=== PATIENT | female | born 1980 | race African-American/Black ===

== ENCOUNTER 2016-07-30 04:11 | Emergency (ER) | payer BC ==
[2016-07-30] MEDS ORDERED: Ondansetron HCl/PF 4 MG/2 ML Vial ONE (04:31)
[2016-07-30] MEDS ORDERED: Sodium Chloride 0.9% 1,000 ML ONE (04:31)
[2016-07-30 04:45] LABS: #Basophils 0.1 thou/uL (0.0-0.2); #Eosinphils 0.1 thou/uL (0.0-0.7); #Lymphocytes 2.4 thou/uL (1.20-3.40); #Monocytes 0.5 thou/uL (0.11-0.59); #Neutrophils 2.6 thou/uL (1.40-6.50); %Basophils 1.4 % (0.0-1.0); %Eosinophils 1.3 % (0.0-10.0); %Lymphocytes 41.8 % (21.0-51.0); %Monocytes 8.8 % (0.0-10.0); Hematocrit 30.8 % (36.0-47.0); Mean Platelet Volume 7.1 fL (7.4-10.4); Red Blood Cell (RBC) Count 4.16 mill/uL (4.20-5.40); White Blood Cell (WBC) Count 5.6 thou/uL (4.8-10.8)
[2016-07-30 04:46] LABS: Microcytosis MODERATE=15-30 cells (100X) (0-5/hpf); Spherocytes SLIGHT = 1-5 cells (100X) (None Seen); Tear Drops MODERATE= 6-15 cells (100X) (0-1/hpf)
[2016-07-30 04:57] LABS: ALT (SGPT) 10 U/L (0-55); AST (SGOT) 16 U/L (5-34); Alkaline Phosphatase 89 U/L (40-150); Anion Gap 13 mmol/L (10-20); BUN (Urea Nitrogen) 17 mg/dL (7.0-18.7); Bilirubin, Total 0.2 mg/dL (0.2-1.2); Calc. Creatinine Clearance 0 mL/min (70-130); Calcium 8.7 mg/dL (7.8-10.44); Carbon Dioxide 23 mmol/L (22-29); Chloride 109 mmol/L (98-107); Estimated GFR-MDRD 78; Protein, Total 7.8 g/dL (6.0-8.3)
--- NOTE | 2016-07-30 06:57 | ERRECORD ---
[facility] EMERGENCY RECORD HPI ABDOMINAL PAIN (04:32 JROB) CHIEF COMPLAINTS: Patient presents for evaluation of abdominal pain. HISTORIAN: History provided by patient, 36 year old female with history of bowel obstruction, bowel resection, appendectomy in 2000, presents with acute onset of right lower quadrant at 1am. Took 2 Motrin without relief. Had episode of similar pain 1 month ago that awoke her from sleep, but the pain resolved after taking Motrin. She was also seen at [place] [facility] last week with left sided pain, but was told that symptoms may be related to ovarian cyst. She states that labs were drawn and sent then, but does not know results, no imaging studies done at that time. She states her pain feels similar to when she had her "big surgery". No nausea, vomiting, diarrhea. No urinary symptoms. No fever, chills. LOCATION FEMALE: Symptoms are localized, most severe in the right lower quadrant. QUALITY: Pain is sharp in nature. SEVERITY: Current severity of pain rated as 8/10. TIME COURSE: Sudden onset of symptoms. ASSOCIATED WITH FEMALE: No associated symptoms, No associated chills, No associated constipation, No associated diarrhea, No associated fever, No associated hematemesis, No associated hematuria, No associated nausea, No associated trauma, No associated recent travel, No associated urinary tract infection signs or symptoms, No associated vomiting. MODIFYING FACTORS FEMALE: Patient using control, tubal ligation. RELIEVED BY: Patient's condition relieved by palpation. EXACERBATED BY: Patient's condition exacerbated by hanging right leg off stretcher. ROS (04:37 JROB) CONSTITUTIONAL: Historian denies chills, denies fever. ENT: Historian denies sore throat. CARDIOVASCULAR: Historian denies syncope. RESPIRATORY: Historian denies cough, denies shortness of breath. GI: Historian reports abdominal pain, denies nausea, denies vomiting. GENITOURINARY FEMALE: Historian denies dysuria, denies hematuria. MUSCULOSKELETAL: Historian denies back pain, denies neck pain. SKIN: Historian denies rash. NEUROLOGIC: Historian denies headache, denies mental status changes. HEMO/LYMPHATIC: Historian denies abnormal blood clotting. ALLERGIC/IMMUNOLOGIC: Historian denies frequent infections. PSYCHIATRIC: Historian denies drug abuse. NOTES: All systems reviewed, negative except as described above. PAST MEDICAL HISTORY MEDICAL HISTORY: Notes: "SEVERLY ANEMIC". (04:21 LK) FEMALE SURGICAL HISTORY: COLON RESECTION (2000). BILATERAL PRK EYE SX (2009)., Surgical history of appendectomy, Date of surgery 2000, Surgical history of orthopedic &a-1R&a+25V*p+0X*t2980Z*c202B*c15G*c2P*p-0X&a-25V&a+1R Name: Arpita Hernandez : 1980 F36 MedRec: [id number] AcctNum: [id number] Prepared: SatJul 30, 2016 06:19 by Interface Page 1 of 4 pMD [facility] EMERGENCY RECORD surgery, RIGHT THUMB, Date of surgery 2008, Surgical history of tubal ligation, Date of surgery 2004. (04:21 LK) PSYCHIATRIC HISTORY: No previous psychiatric history. (04:21 LK) SOCIAL HISTORY: Patient drinks socially, once a month, Patient denies drug use, Patient has no smoking history, Lives at home, with family. (04:21 LK) NOTES: Nursing records reviewed, Agree with nursing records, Medication list reviewed. (04:40 JROB) KNOWN ALLERGIES No Known Drug Allergies CURRENT MEDICATIONS (04:18 LK) None VITAL SIGNS VITAL SIGNS: Pain: 8 (Constant), Time: 07/30/2016 04:15. (04:15 [facility]) BP: 113/75, Pulse: 77, Resp: 16, Temp: 99.0 (Oral), O2 sat: 100 on Room Air, Time: 07/30/2016 04:18. (04:18 [facility]) BP: 111/65, Pulse: 63, Resp: 16, Pain: 0, O2 sat: 99 on Room Air, Time: 07/30/2016 05:31. (05:31 [facility]) BP: 106/59, Pulse: 60, Resp: 16, O2 sat: 100 on Room Air, Time: 07/30/2016 05:15. (05:15 [facility]) PHYSICAL EXAM (04:38 JROB) CONSTITUTIONAL: Vital Signs Reviewed, Patient afebrile, Pulse normal, Blood pressure normal, Respiratory rate normal, Patient alert and oriented to person, place and time, Nursing notes reviewed. HEAD: Head exam normal, Head exam included findings of head atraumatic, normocephalic. EYES: Eye exam normal, Pupils equally round and reactive to light, Extraocular muscles intact. ENT: Nose exam normal, Pharynx exam normal, Mouth exam normal. NECK: Neck exam normal, no cervical adenopathy. RESPIRATORY CHEST: Breath sounds clear, No wheezing, No rales, No rhonchi. CARDIOVASCULAR: Cardiovascular assessment normal, Cardiovascular exam included findings of heart rate regular rate and rhythm, Heart sounds normal. ABDOMEN FEMALE: Abdominal exam included findings of abdomen tender, to the right lower quadrant, to the suprapubic region, mild intensity, Bowel sounds normal, no mass, no peritoneal signs, no rebound, voluntary guarding in RLQ and suprapubic areas. BACK: Back exam normal, Back exam included findings of normal inspection, no costovertebral angle tenderness. UPPER EXTREMITY: Upper extremity exam normal, Upper extremity &a-1R&a+25V*p+0X*p4600D*c202B*c15G*c2P*p-0X&a-25V&a+1R Name: Arpita Hernandez : 1980 F36 MedRec: [id number] AcctNum: [id number] Prepared: SatJul 30, 2016 06:19 by Interface Page 2 of 4 pMD [facility] EMERGENCY RECORD exam included findings of inspection normal, Motor strength normal, Sensation intact. LOWER EXTREMITY: Lower extremity exam normal, Lower extremity exam included findings of inspection normal, Motor strength normal, Sensation intact. NEURO: Neuro exam findings include patient oriented to person, place and time, no focal motor deficits, no focal sensory deficits. SKIN: Skin exam included findings of skin warm, dry, no rash. RADIOLOGYINTERPRETATION (05:56 JROB) ABDOMEN: Abdomen/pelvis CT scan, without contrast shows, no obstruction, no ovarian cysts, no renal stones, Other findings: mild gas and fluid in nondilated small bowel, moderate stool. MARKETING SUPPORT MANAGER: Preliminary review of CT scans by, Radiologist. MEDICATION ADMINISTRATION SUMMARY Drug Name: ondansetron HCl intravenous, Dose Ordered: 4 mg, Route: IV Push, Status: Given, Time: 04:39 07/30/2016, Drug Name: *sodium chloride 0.9 % intravenous, Dose Ordered: 1 L, Route: IV Fluid Infusion, Status: Given, Time: 04:39 07/30/2016, Drug Name: morphine injection, Dose Ordered: 4 mg, Route: IV Push, Status: Given, Time: 04:39 07/30/2016, *Additional information available in notes, Detailed record available in Medication Service section. DOCTOR NOTES TEXT: Ordered Morphine, Zofran, IVF, labs, urine, CT abd/pelvis, will continue to monitor. (04:41 JROB) Discussed results with patient, no obstruction. CT shows mild ileus, moderate stool, otherwise negative. Labs notable for iron deficiency anemia. Will d/c home with Iron and Colace with plan to follow up at [place] [facility]. Patient is comfortable with this plan. (05:57 JROB) PATIENT STATUS: Patient has improved since arrival to emergency department. (05:57 JROB) PATIENT PLAN: The patient will be discharged, The patient will follow up with primary care physician. (05:57 JROB) DATA REVIEWED: Lab data reviewed, Xray data reviewed. (05:57 JROB) PROBLEM LIST No recorded problems DIAGNOSIS DIFFERENTIAL: Based on history, exam and ancillary studies if indicated: Impression: abdominal pain of unclear etiology, Impression: bowel obstruction, Impression: constipation, Impression: urinary tract disease, &a-1R&a+25V*p+0X*c8275G*c202B*c15G*c2P*p-0X&a-25V&a+1R Name: Arpita Hernandez : 1980 F36 MedRec: [id number] AcctNum: [id number] Prepared: SatJul 30, 2016 06:19 by Interface Page 3 of 4 pMD [facility] EMERGENCY RECORD Impression: nephrolithiasis, Impression: , Impression: ectopic , Impression: ovarian cyst, Impression: ruptured ovarian cyst, Diagnoses considered are not limited to those documented above. (04:40 JROB) FINAL: PRIMARY: Lower abdominal pain, ADDITIONAL: IRON DEFICIENCY ANEMIA UNSPECIFIED. (06:01 JROB) PRESCRIPTION (06:00 JROB) ferrous sulfate oral: TABLET : 325 mg (65 mg iron) : ORAL : Quantity: 1 Unit: tab(s) Route: ORAL Schedule: once a day Dispense: 30 Unit: tab(s) May substitute. Refills: No Refills . NOTES: No Refills. Colace: CAPSULE : 100 mg : ORAL : Quantity: 1 Unit: cap(s) Route: ORAL Schedule: 2 times a day Dispense: 60 Unit: cap(s) May substitute. Refills: No Refills . NOTES: No Refills. DISPOSITION PATIENT: Disposition Type: Discharge, Disposition: *Discharge Home. (06:01 BIN) Patient left the department. (06:15 KOKO) Moe: BIN=MD Osmel, Carlos [facility]=BRIAN Kendall, Alisa &a-1R&a+25V*p+0X*d3668P*c202B*c15G*c2P*p-0X&a-25V&a+1R Name: Arpita Hernandez : 1980 F36 MedRec: [id number] AcctNum: [id number] Prepared: SatJul 30, 2016 06:19 by Interface Page 4 of 4 pMD MTDD
--- NOTE | 2016-07-30 07:05 | PICIS ---
[facility] EMERGENCY RECORD TRIAGE (SatJul 30, 2016 04:[address] [facility]) TRIAGE NOTES: RLQ PAIN SINCE 0100. PATIENT WOKE FROM SLEEP WITH CONSTANT SHARP PAIN. REBOUND TENDERNESS. HX: APPENDECTOMY IN 2000. (SatJul 30, 2016 04:[address] [facility]) PATIENT: NAME: Arpita Hernandez, AGE: 36, GENDER: female, : [facility] 1980, TIME OF GREET: SatJul 30, 2016 04:12, ECODE BILLING MAP: [facility], Zip Code: [address], KG WEIGHT: [phone] (est.), PHONE: , , , PERSON ID: [id number], PCP: MELQUIADES Mendieta. (SatJul 30, 2016 04:[address] [facility]) COMPLAINT: RIGHT SIDE PAIN. (SatJul 30, 2016 04:[address] [facility]) ADMISSION: URGENCY: 3 Urgent, ADMISSION SOURCE: Home, TRANSPORT: CAR, BED: ER -03. (SatJul 30, 2016 04:[address] [facility]) PAIN: Patient complains of pain described as, sharp, on a scale 0-10 patient rates pain as 8, Location RLQ, Pain is constant, Onset was 07/30/2016 01:00. (04:[address] [facility]) IMMUNIZATIONS: Flu vaccine up to date, Tetanus immunization up to date. (04:[address] [facility]) SIRS SCORING: Heart Rate 55-109 (0), Temp range 96.8-101.1 (0), respiratory rate 12-24 (0), Mental Status altered: no (0). (04:[address] [facility]) TRIAGE SCREENING: Patient denies suicidal ideation, Patient denies presence of domestic violence. (04:[address] [facility]) TREATMENTS IN PROGRESS: Treatments given Prehospital: 800mg IBUPROFEN @ 0230. (04:[address] [facility]) PROVIDERS: TRIAGE NURSE: Alisa Kendall RN. (SatJul 30, 2016 04:[address] [facility]) VITAL SIGNS: Pain 8, (Constant), Time 07/30/2016 04:15. (04:[address] [facility]) BP 113/75, Pulse 77, Resp 16, Temp 99.0, (Oral), O2 Sat 100, on Room Air, Time 07/30/2016 04:18. (04:[address] [facility]) KNOWN ALLERGIES No Known Drug Allergies CURRENT MEDICATIONS (04:[address] [facility]) None VITAL SIGNS VITAL SIGNS: Pain: 8 (Constant), Time: 07/30/2016 04:15. (04:[address] [facility]) BP: 113/75, Pulse: 77, Resp: 16, Temp: 99.0 (Oral), O2 sat: 100 on Room Air, Time: 07/30/2016 04:18. (04:[address] [facility]) BP: 111/65, Pulse: 63, Resp: 16, Pain: 0, O2 sat: 99 on Room Air, Time: 07/30/2016 05:31. (05:[address] [facility]) BP: 106/59, Pulse: 60, Resp: 16, O2 sat: 100 on Room Air, Time: 07/30/2016 05:15. (05:[address] [facility]) NURSING ASSESSMENT: ABDOMEN (04:[address] [facility]) &a-1R&a+25V*p+0X*i3984M*c202B*c15G*c2P*p-0X&a-25V&a+1R Name: Arpita Hernandez Aisha : 1980 F36 MedRec: [id number] AcctNum: [id number] Prepared: SatJul 30, 2016 06:19 by Interface Page 1 of 10 pMD [facility] EMERGENCY RECORD CONSTITUTIONAL: Complex assessment performed, Patient arrives ambulatory, Gait steady, History obtained from patient, Patient cooperative, Patient alert, Oriented to person, place and time, Skin warm, Skin dry, Skin normal in color, Mucous membranes pink, Mucous membranes moist, Patient is well-groomed, Patient complains of RLQ PAIN. PAIN: sharp pain, to the right lower quadrant, Onset of pain 07/30/2016 01:00, constant, on a scale 0-10 patient rates pain as 8. ABDOMEN: Abdomen assessment findings include abdomen symmetrical, no discolorations, Abdomen soft, tender, to the right lower quadrant, REBOUND TENDERNESS NOTED., no associated nausea, no associated vomiting, no associated diarrhea, no associated constipation. GENITOURINARY FEMALE: no associated urinary complaints. SAFETY: Side rails up, Cart/Stretcher in lowest position, Call light within reach, Hospital ID band on. NURSING PROCEDURE: KAIAKO KURA TUARUA (04:27 MBOS) PATIENT IDENTIFIER: Patient actively involved in identification process, Patient's identity verified by patient stating name, Patient's identity verified by patient stating date, Patient's identity verified by hospital ID bracelet. KAIAKO KURA TUARUA: Patient placed on non-invasive blood pressure monitor, with disposable blood pressure cuff applied, Patient placed on continuous pulse oximetry, Adult/pediatric oxisensor applied, Oxygen saturation 100%. SAFETY: Side rails up, Cart/Stretcher in lowest position, Call light within reach, Hospital ID band on. NURSING PROCEDURE: IV (04:26 MBOS) PATIENT IDENITIFIER: Patient actively involved in identification process, Patient's identity verified by patient stating name, Patient's identity verified by patient stating date, Patient's identity verified by hospital ID bracelet. IV SITE 1: IV therapy indicated for hydration, IV therapy indicated for medication administration, IV established, to the left antecubital, using a 20 gauge catheter, in one attempt, Saline lock established, Flushed with normal saline (mls): 10, Labs drawn at time of placement, labeled in the presence of the patient and sent to lab. SAFETY: Side rails up, Cart/Stretcher in lowest position, Call light within reach, Hospital ID band on. ORDER DETAILS Order Name: CBC with Differential, Status: Active, Time: 04:31 07/30/2016, User: BIN, - Ordered for: MD Bolivar Joseph, - Entered by: MD Bolivar Joseph - [facility] Jul 30, 2016 04:31, &a-1R&a+25V*p+0X*t6060C*c202B*c15G*c2P*p-0X&a-25V&a+1R Name: Arpita Hernandez : 1980 F36 MedRec: [id number] AcctNum: [id number] Prepared: SatJul 30, 2016 06:19 by Interface Page 2 of 10 D [facility] EMERGENCY RECORD - Quantity: 1, Order Name: Comprehensive Metabolic Panel, Status: Active, Time: 04:31 07/30/2016, User: BIN, - Ordered for: MD Bolivar Joseph, - Entered by: MD Bolivar Joseph - Mon Jul 30, 2016 04:31, - Quantity: 1, Order Name: CT Abdomen Pelvis WO Con, Status: Active, Time: 04:31 07/30/2016, User: BIN, - Ordered for: MD Bolivar Joseph, - Entered by: MD Bolivar Joseph - Mon Jul 30, 2016 04:31, - Quantity: 1, Order Name: Culture, Urine, Status: Canceled, Time: 06:04 07/30/2016, User: KOKO, - Ordered for: MD Bolivar Joseph, - Entered by: MD Bolivar Joseph - Mon Jul 30, 2016 04:31, - Reason for Cancel: per order, - Quantity: 1, Order Name: Test, Serum (BHCG), Status: Active, Time: 04:34 07/30/2016, User: KOKO, - Ordered for: MD Bolivar Joseph, - Entered by: BRIAN Kendall Lacey - Mon Jul 30, 2016 04:34, - Quantity: 1, Order Name: Test, Urine (BHCG), Status: Canceled, Time: 04:35 07/30/2016, User: KOKO, - Ordered for: MD Bolivar Joseph, - Entered by: MD Bolivar Joseph - Mon Jul 30, 2016 04:31, - Reason for Cancel: serum preg ordered, - Quantity: 1, Order Name: Urinalysis w/ Rflx Microscopic, Status: Canceled, Time: 06:04 07/30/2016, User: KOKO, - Ordered for: MD Bolivar Joseph, - Entered by: MD Bolivar Joseph - Mon Jul 30, 2016 04:31, - Reason for Cancel: per order, - Quantity: 1. MEDICATION ADMINISTRATION SUMMARY Drug Name: ondansetron HCl intravenous, Dose Ordered: 4 mg, Route: IV Push, Status: Given, Time: 04:39 07/30/2016, Drug Name: *sodium chloride 0.9 % intravenous, Dose Ordered: 1 L, Route: IV Fluid Infusion, Status: Given, Time: 04:39 07/30/2016, Drug Name: morphine injection, Dose Ordered: 4 mg, Route: IV Push, Status: Given, Time: 04:39 07/30/2016, *Additional information available in notes, Detailed record available in Medication Service section. MEDICATION SERVICE morphine injection: Order: morphine injection (morphine sulfate) - Dose: 4 mg : IV Push Schedule: Now &a-1R&a+25V*p+0X*s8272V*c202B*c15G*c2P*p-0X&a-25V&a+1R Name: Arpita Hernandez : 1980 F36 MedRec: [id number] AcctNum: [id number] Prepared: SatJul 30, 2016 06:19 by Interface Page 3 of 10 pMD [facility] EMERGENCY RECORD Ordered by: Carlos Bolivar MD Entered by: Carlos Bolivar MD SatJul 30, 2016 04:30 , Acknowledged by: Alisa Kendall RN SatJul 30, 2016 04:32 Documented as given by: Charleen Friedman RN SatJul 30, 2016 04:39 Patient, Medication, Dose, Route and Time verified prior to administration. IV SITE #1 IVP, initial medication, Slowly, Awake and alert- acceptable, Catheter placement confirmed via flush prior to administration, IV site without signs or symptoms of infiltration during medication administration, No swelling during administration, No drainage during administration, IV flushed after administration, Correct patient, time, route, dose and medication confirmed prior to administration, Patient advised of actions and side-effects prior to administration, Allergies confirmed and medications reviewed prior to administration, Patient in position of comfort, Side rails up, Cart in lowest position. : Follow Up : No signs or symptoms of allergic reaction noted, Decreased pain, _IV SITE #1:_. (05:[address] [facility]) ondansetron HCl intravenous: Order: ondansetron HCl intravenous (ondansetron HCl) - Dose: 4 mg : IV Push Schedule: Now Ordered by: Carlos Bolivar MD Entered by: Carlos Bolivar MD SatJul 30, 2016 04:30 , Acknowledged by: Alisa Kendall RN SatJul 30, 2016 04:32 Documented as given by: Charleen Friedman RN SatJul 30, 2016 04:39 Patient, Medication, Dose, Route and Time verified prior to administration. IV SITE #1 IVP, subsequent different medication, Slowly, Awake and alert- acceptable, Catheter placement confirmed via flush prior to administration, IV site without signs or symptoms of infiltration during medication administration, No swelling during administration, No drainage during administration, IV flushed after administration, Correct patient, time, route, dose and medication confirmed prior to administration, Patient advised of actions and side-effects prior to administration, Allergies confirmed and medications reviewed prior to administration, Patient in position of comfort, Side rails up, Cart in lowest position. : Follow Up : No signs or symptoms of allergic reaction noted, _IV SITE #1:_. (05:[address] [facility]) sodium chloride 0.9 % intravenous: Order: sodium chloride 0.9 % intravenous (0.9 % sodium chloride) - Dose: 1 L : IV Fluid Infusion Schedule: Bolus Notes: (Bolus) Ordered by: Carlos Bolivar MD Entered by: Carlos Bolivar MD SatJul 30, 2016 04:30 , Acknowledged by: Alisa Kendall RN SatJul 30, 2016 04:32 Documented as given by: Charleen Friedman RN SatJul 30, 2016 04:39 Patient, Medication, Dose, Route and Time verified prior to administration. &a-1R&a+25V*p+0X*e0716G*c202B*c15G*c2P*p-0X&a-25V&a+1R Name: David, Arpita D : 1980 F36 MedRec: [id number] AcctNum: [id number] Prepared: SatJul 30, 2016 06:19 by Interface Page 4 of 10 D [facility] EMERGENCY RECORD IV SITE #1 IV fluids established for hydration, IV SITE #1 into left antecubital, IV SITE #1 1st bag hung, amount 1 Liter hung, IV SITE #1 bolus of 1000 ml established, via primary tubing, via pump tubing, Awake and alert- acceptable, Catheter placement confirmed via flush prior to administration, IV site without signs or symptoms of infiltration during medication administration, No swelling during administration, No drainage during administration, IV flushed after administration, Correct patient, time, route, dose and medication confirmed prior to administration, Patient advised of actions and side-effects prior to administration, Allergies confirmed and medications reviewed prior to administration, Patient in position of comfort, Side rails up, Cart in lowest position. : Follow Up : No signs or symptoms of allergic reaction noted, _IV SITE #1:_, IV fluid infusion discontinued, on SatJul 30, 2016 05:45, Total fluid hydration time IV site 1 1 hour, 10 minutes, ., Total amount infused: 1L. (05:[address] [facility]) HPI ABDOMINAL PAIN (04:32 JROB) CHIEF COMPLAINTS: Patient presents for evaluation of abdominal pain. HISTORIAN: History provided by patient, 36 year old female with history of bowel obstruction, bowel resection, appendectomy in 2000, presents with acute onset of right lower quadrant at 1am. Took 2 Motrin without relief. Had episode of similar pain 1 month ago that awoke her from sleep, but the pain resolved after taking Motrin. She was also seen [facility] last week with left sided pain, but was told that symptoms may be related to ovarian cyst. She states that labs were drawn and sent then, but does not know results, no imaging studies done at that time. She states her pain feels similar to when she had her "big surgery". No nausea, vomiting, diarrhea. No urinary symptoms. No fever, chills. LOCATION FEMALE: Symptoms are localized, most severe in the right lower quadrant. QUALITY: Pain is sharp in nature. SEVERITY: Current severity of pain rated as 8/10. TIME COURSE: Sudden onset of symptoms. ASSOCIATED WITH FEMALE: No associated symptoms, No associated chills, No associated constipation, No associated diarrhea, No associated fever, No associated hematemesis, No associated hematuria, No associated nausea, No associated trauma, No associated recent travel, No associated urinary tract infection signs or symptoms, No associated vomiting. MODIFYING FACTORS FEMALE: Patient using control, tubal ligation. RELIEVED BY: Patient's condition relieved by palpation. EXACERBATED BY: Patient's condition exacerbated by hanging right leg off stretcher. ROS (04:37 JROB) CONSTITUTIONAL: Historian denies chills, denies fever. ENT: Historian denies sore throat. CARDIOVASCULAR: Historian denies syncope. RESPIRATORY: Historian denies cough, denies shortness of breath. &a-1R&a+25V*p+0X*m4042V*c202B*c15G*c2P*p-0X&a-25V&a+1R Name: Arpita Hernandez : 1980 F36 MedRec: [id number] AcctNum: [id number] Prepared: SatJul 30, 2016 06:19 by Interface Page 5 of 10 pMD [facility] EMERGENCY RECORD GI: Historian reports abdominal pain, denies nausea, denies vomiting. GENITOURINARY FEMALE: Historian denies dysuria, denies hematuria. MUSCULOSKELETAL: Historian denies back pain, denies neck pain. SKIN: Historian denies rash. NEUROLOGIC: Historian denies headache, denies mental status changes. HEMO/LYMPHATIC: Historian denies abnormal blood clotting. ALLERGIC/IMMUNOLOGIC: Historian denies frequent infections. PSYCHIATRIC: Historian denies drug abuse. NOTES: All systems reviewed, negative except as described above. PAST MEDICAL HISTORY MEDICAL HISTORY: Notes: "SEVERLY ANEMIC". (04:21 LK) FEMALE SURGICAL HISTORY: COLON RESECTION (2000). BILATERAL PRK EYE SX (2009)., Surgical history of appendectomy, Date of surgery 2000, Surgical history of orthopedic surgery, RIGHT THUMB, Date of surgery 2008, Surgical history of tubal ligation, Date of surgery 2004. (04:21 [facility]) PSYCHIATRIC HISTORY: No previous psychiatric history. (04:21 [facility]) SOCIAL HISTORY: Patient drinks socially, once a month, Patient denies drug use, Patient has no smoking history, Lives at home, with family. (04:21 [facility]) NOTES: Nursing records reviewed, Agree with nursing records, Medication list reviewed. (04:40 JROB) PHYSICAL EXAM (04:38 JROB) CONSTITUTIONAL: Vital Signs Reviewed, Patient afebrile, Pulse normal, Blood pressure normal, Respiratory rate normal, Patient alert and oriented to person, place and time, Nursing notes reviewed. HEAD: Head exam normal, Head exam included findings of head atraumatic, normocephalic. EYES: Eye exam normal, Pupils equally round and reactive to light, Extraocular muscles intact. ENT: Nose exam normal, Pharynx exam normal, Mouth exam normal. NECK: Neck exam normal, no cervical adenopathy. RESPIRATORY CHEST: Breath sounds clear, No wheezing, No rales, No rhonchi. CARDIOVASCULAR: Cardiovascular assessment normal, Cardiovascular exam included findings of heart rate regular rate and rhythm, Heart sounds normal. ABDOMEN FEMALE: Abdominal exam included findings of abdomen tender, to the right lower quadrant, to the suprapubic region, mild intensity, Bowel sounds normal, no mass, no peritoneal signs, no rebound, voluntary guarding in RLQ and suprapubic areas. BACK: Back exam normal, Back exam included findings of normal inspection, no costovertebral angle tenderness. &a-1R&a+25V*p+0X*s5358Q*c202B*c15G*c2P*p-0X&a-25V&a+1R Name: Arpita Hernandez : 1980 F36 MedRec: [id number] AcctNum: [id number] Prepared: SatJul 30, 2016 06:19 by Interface Page 6 of 10 pMD [facility] EMERGENCY RECORD UPPER EXTREMITY: Upper extremity exam normal, Upper extremity exam included findings of inspection normal, Motor strength normal, Sensation intact. LOWER EXTREMITY: Lower extremity exam normal, Lower extremity exam included findings of inspection normal, Motor strength normal, Sensation intact. NEURO: Neuro exam findings include patient oriented to person, place and time, no focal motor deficits, no focal sensory deficits. SKIN: Skin exam included findings of skin warm, dry, no rash. LAB INTERPRETATION (05:55 JROB) INTERPRETATION: I reviewed the lab results, CBC abnormal, Hemoglobin decreased, Hematocrit decreased, MCV mildly low, Chemistry abnormal, Chloride elevated, Chemistry otherwise normal, Serum B-HCG negative. EVENTS TRANSFER: Triage to Emergency Emergency Room -03. (SatJul 30, 2016 04:17 [facility]) Removed from Emergency Emergency Room -03. (06:[address] [facility]) RADIOLOGYINTERPRETATION (05:56 JROB) ABDOMEN: Abdomen/pelvis CT scan, without contrast shows, no obstruction, no ovarian cysts, no renal stones, Other findings: mild gas and fluid in nondilated small bowel, moderate stool. STAFF ANESTHESIOLOGIST: Preliminary review of CT scans by, Radiologist. O2SAT INTERPRETATION (04:40 JROB) O2SAT: Single pulse oximetry, Oxygen saturation 100%, on room air, Oxygen saturation interpretation: Normal, No intervention required. DOCTOR NOTES TEXT: Ordered Morphine, Zofran, IVF, labs, urine, CT abd/pelvis, will continue to monitor. (04:41 JROB) Discussed results with patient, no obstruction. CT shows mild ileus, moderate stool, otherwise negative. Labs notable for iron deficiency anemia. Will d/c home with Iron and Colace [facility] Patient is comfortable with this plan. (05:57 JROB) PATIENT STATUS: Patient has improved since arrival to emergency department. (05:57 JROB) PATIENT PLAN: The patient will be discharged, The patient will follow up with primary care physician. (05:57 JROB) DATA REVIEWED: Lab data reviewed, Xray data reviewed. (05:57 JROB) PROBLEM LIST &a-1R&a+25V*p+0X*y6049G*c202B*c15G*c2P*p-0X&a-25V&a+1R Name: Arpita Hernandez : 1980 F36 MedRec: [id number] AcctNum: [id number] Prepared: SatJul 30, 2016 06:19 by Interface Page 7 of 10 pMD [facility] EMERGENCY RECORD No recorded problems DIAGNOSIS DIFFERENTIAL: Based on history, exam and ancillary studies if indicated: Impression: abdominal pain of unclear etiology, Impression: bowel obstruction, Impression: constipation, Impression: urinary tract disease, Impression: nephrolithiasis, Impression: , Impression: ectopic , Impression: ovarian cyst, Impression: ruptured ovarian cyst, Diagnoses considered are not limited to those documented above. (04:40 JROB) FINAL: PRIMARY: Lower abdominal pain, ADDITIONAL: IRON DEFICIENCY ANEMIA UNSPECIFIED. (06:01 JROB) DISPOSITION PATIENT: Disposition Type: Discharge, Disposition: *Discharge Home. (06:01 JROB) Patient left the department. (06:[address] [facility]) INSTRUCTION (06:02 JROB) DISCHARGE: ABDOMINAL PAIN, UNKNOWN CAUSE, (FEMALE), ANEMIA, IRON DEFICIENCY (ADULT). PHARMACY: Colace, ferrous sulfate oral. FOLLOWUP: Follow up with Primary Care Physician in 3-4 days. SPECIAL: Follow-up with your PCP We hope you feel better soon! We are always happy to take care of you and your family! Return to the ER immediately for any new, concerning, or worsening symptoms. PRESCRIPTION (06:00 JROB) ferrous sulfate oral: TABLET : 325 mg (65 mg iron) : ORAL : Quantity: 1 Unit: tab(s) Route: ORAL Schedule: once a day Dispense: 30 Unit: tab(s) May substitute. Refills: No Refills . NOTES: No Refills. Colace: CAPSULE : 100 mg : ORAL : Quantity: 1 Unit: cap(s) Route: ORAL Schedule: 2 times a day Dispense: 60 Unit: cap(s) May substitute. Refills: No Refills . NOTES: No Refills. ADMIN (06:03 JROB) DIGITAL SIGNATURE: MD Bolivar Joseph. RESULTS (05:50 JROB) LABORATORY: Comprehensive Metabolic Panel Collection DT: SatJul 30, 2016 04:35, Sodium 141 mmol/L, Range (136-145), Potassium 4.0 mmol/L, Range (3.5-5.1), &a-1R&a+25V*p+0X*j9645B*c202B*c15G*c2P*p-0X&a-25V&a+1R Name: Arpita Hernandez : 1980 F36 MedRec: [id number] AcctNum: [id number] Prepared: SatJul 30, 2016 06:19 by Interface Page 8 of 10 pMD [facility] EMERGENCY RECORD *Chloride 109 - H mmol/L, Range (98-107), Carbon Dioxide 23 mmol/L, Range (22-29), Anion Gap 13 mmol/L, Range (10-20), BUN (Urea Nitrogen) 17 mg/dL, Range (7.0-18.7), Creatinine 0.99 mg/dL, Range (0.6-1.1), Estimated GFR-MDRD 78 , Reference Range for Estimated GFR: Greater than 90, mL/min/1.73 m2 NOTE: The MDRD equation has not been validated for use, with the elderly (over 70 years of age), women, patients with, serious comorbid condition or persons with extremes of body size, muscle, mass, or nutritional status. , Glucose 92 mg/dL, Range (70-105), Calcium 8.7 mg/dL, Range (7.8-10.44), Bilirubin, Total 0.2 mg/dL, Range (0.2-1.2), Protein, Total 7.8 g/dL, Range (6.0-8.3), NOTE: Plasma values are generally 0.3 to 0.5 g/dL higher than serum values, due to the presence of fibrinogen. , Albumin 3.8 g/dL, Range (3.5-5.0), *Globulin 4.0 - H g/dL, Range (2.4-3.5), *Alb/Glob Ratio 1.0 - L g/dL, Range (1.2-2.2), Alkaline Phosphatase 89 U/L, Range (40-150), AST (SGOT) 16 U/L, Range (5-34), ALT (SGPT) 10 U/L, Range (0-55). Test, Serum (BHCG) Collection DT: SatJul 30, 2016 04:39, BHCG - Serum NEGATIVE , Range (NEGATIVE), Method of sensitivity- Indeterminant: results should be repeated, after 48 hours. Positive: results may be detected as early as 4-5 days before a first missed menses. Elimination of BHCG-, Elimination following first trimester D&C: 29-44 Days , Elimination following term : 8-24 Days . CBC with Differential Collection DT: SatJul 30, 2016 04:35, White Blood Cell (WBC) Count 5.6 thou/uL, Range (4.8-10.8), *Red Blood Cell (RBC) Count 4.16 - L mill/uL, Range (4.20-5.40), *Hemoglobin 9.5 - L g/dL, Range (12.0-16.0), *Hematocrit 30.8 - L %, Range (36.0-47.0), *Mean Corpuscular Volume 74.2 - L fl, Range (81.0-99.0), *Mean Corpuscular Hemoglobin 22.8 - L pg, Range (27.0-31.0), *Mean Corpuscular HGB CONC 30.7 - L g/dL, Range (32.0-36.0), *RBC Distribution Width 15.2 - H %, Range (11.5-14.5), Platelet Count 334 thou/uL, Range (130-400), *Mean Platelet Volume 7.1 - L fL, Range (7.4-10.4), &a-1R&a+25V*p+0X*j0199S*c202B*c15G*c2P*p-0X&a-25V&a+1R Name: Arpita Hernandez : 1980 6 MedRec: [id number] AcctNum: [id number] Prepared: SatJul 30, 2016 06:19 by Interface Page 9 of 10 pMD [facility] EMERGENCY RECORD %Neutrophils 46.7 %, Range (42.0-75.0), %Lymphocytes 41.8 %, Range (21.0-51.0), %Monocytes 8.8 %, Range (0.0-10.0), %Eosinophils 1.3 %, Range (0.0-10.0), *%Basophils 1.4 - H %, Range (0.0-1.0), #Neutrophils 2.6 thou/uL, Range (1.40-6.50), #Lymphocytes 2.4 thou/uL, Range (1.20-3.40), #Monocytes 0.5 thou/uL, Range (0.11-0.59), #Eosinphils 0.1 thou/uL, Range (0.0-0.7), #Basophils 0.1 thou/uL, Range (0.0-0.2), Microcytosis MODERATE=15-30 cells (100X), Range (0-5/hpf), Spherocytes SLIGHT = 1-5 cells (100X), Range (None Seen), Tear Drops MODERATE= 6-15 cells (100X), Range (0-1/hpf). Moe: JROB=MD Osmel, Carlos NURRC=BRIAN Kendall, Alisa MBOS=BRIAN Friedman, Charleen &a-1R&a+25V*p+0X*z4664R*c202B*c15G*c2P*p-0X&a-25V&a+1R Name: Arpita Hernandez : 1980 6 MedRec: [id number] AcctNum: [id number] Prepared: SatJul 30, 2016 06:19 by Interface Page 10 of 10 pMD [facility]
--- NOTE | 2016-07-30 10:49 | CT ---
PRELIMINARY REPORT/[facility]/EMERGENCY AFTER HOURS PROCEDURE: EXAM: CT Abdomen and Pelvis Without Intravenous Contrast. CLINICAL HISTORY: 36 years old, female; Pain; Abdominal pain; Rebound pain; Right lower quadrant (rlq); Prior surgery; Surgery date: 6+ months; Surgery type: Appendectomy, colon resection due to bowel obstruction, tuba l ligation; Additional info: Rlq pain that woke the patient from sleep, constant sharp pain since 00 TECHNIQUE: Axial computed tomography images of the abdomen and pelvis without intravenous contrast. Coronal and sagittal reformatted images were created and reviewed. COMPARISON: No relevant prior studies available. FINDINGS: Lower thorax: No acute findings. ABDOMEN: Liver: Unremarkable. Gallbladder and bile ducts: Unremarkable. No calcified stones. No ductal dilation. Pancreas: Unremarkable. Spleen: Unremarkable. Adrenals: Unremarkable. Kidneys and ureters: Unremarkable. No stones. No hydronephrosis. Stomach and bowel: There is a moderate amount of stool in the colon. There is a prominent amount of gas and fluid in some of the nondilated small bowel. There is no evidence of bowel obstruction. Appendix: There is evidence of appendectomy. PELVIS: Bladder: Unremarkable. No stones. Reproductive: Unremarkable as visualized. ABDOMEN and PELVIS: Intraperitoneal space: Unremarkable. No free air. No significant fluid collection. Soft tissues: Unremarkable. Vasculature: Unremarkable. Lymph nodes: Unremarkable. No enlarged lymph nodes. IMPRESSION: 1. Possible mild small bowel ileus or enteritis of uncertain etiology. 2. Otherwise no evidence of acute disease. Thank you for allowing us to participate in the care of your patient. Dictated and Authenticated by: Gianni Lagunas MD 07/30/2016 5:44 AM Central Time ([place] \T\ [place]) FINAL REPORT EMERGENCY AFTER HOURS CT ABDOMEN AND PELVIS WITHOUT IV CONTRASTS: Date: 07/30/16 HISTORY: Right lower quadrant abdominal pain since 0100 hours. Patient states the pain is constant and sharp in nature. Rebound tenderness. IMPRESSION: 1. Radiopaque suture material at the cecal apex. The appendix is not visualized on this nonenhanced CT scan examination, and these findings may be related to prior appendectomy. 2. Subcentimeter too small to characterize hypodense lesion in the posterior segment of the right h epatic lobe. 3. No renal or ureteral calculus is seen bilaterally, and there is no hydronephrosis. 4. Nonspecific prominence of the left ovary, which cannot be further evaluated on this nonenhanced CT scan examination. This could be within normal limits. If there is pain in the pelvis, pelvic ultr asound may be helpful for further evaluation. 5. No dilated loops of small bowel are visualized. Findings are in agreement with the preliminary report by [facility]. POS: VÍCTOR
== END 2016-07-30 06:14 | disposition home or self-care (01) ==
LOC: NAV ERS 04:11
DX: R10.31 Right lower quadrant pain (principal); R10.30 Lower abdominal pain, unspecified; D50.9 Iron deficiency anemia, unspecified
CPT/HCPCS: 36415; 74176; 80053; 84703; 85025; 96361; 96374; 96375; J2270; J2405; J7050

== ENCOUNTER 2019-05-29 06:00 | Emergency (ER) | payer BC, SELFPAY ==
[2019-05-29] MEDS ORDERED: Ibuprofen 200 MG TAB ONE (06:15)
[2019-05-29] MEDS ORDERED: Adacel (T-DAP) 0.5 ML SYRINGE ONE (06:29)
[2019-05-29] MEDS ORDERED: Lidocaine 1% (PF) 30 ML VIAL ONE (06:33)
[2019-05-29] MEDS ORDERED: Triple Antibiotic Oint 1 GM Packet ONE (06:49)
[2019-05-29] MEDS ORDERED: HYDROcodone/Acetaminophen 5/325 mg Tablet ONE (06:59)
[2019-05-29] MEDS ORDERED: Cephalexin 250 MG CAP ONE (07:05)
--- NOTE | 2019-05-29 08:02 | RAD ---
Exam:3 views left hand HISTORY: Pain. Injury. Slammed hand in car door. COMPARISON: None FINDINGS: Nondisplaced tuft fracture involving the fourth digit. No additional fractures. Joint space s are preserved. There is associated soft tissue swelling in the midportion of the fourth digit, at the proximal interphalangeal joint space. IMPRESSION: Soft tissue injury and tuft fracture involving the fourth digit.
== END 2019-05-29 07:26 | disposition home or self-care (01) ==
LOC: NAV ERS 06:00
DX: S62.605B Fracture of unspecified phalanx of left ring finger, initial encounter for open fracture (principal); D50.9 Iron deficiency anemia, unspecified; W23.0XXA Caught, crushed, jammed, or pinched between moving objects, initial encounter
CPT/HCPCS: 90471; 90715; J2001